=== PATIENT | female | born 1970 | race African-American/Black ===

== ENCOUNTER 2016-10-11 10:45 | Emergency (ER) | payer MEDICAID, OTHER ==
[~2016-10-11] VITALS: Ht 172.7 cm; Wt 114.0 kg
[~2016-10-11 10:45] MED LIST: BENADRYL; TYLENOL #3; ZOLOFT
[2016-10-11] MEDS ORDERED: HYDR12.529 PO (10:58)
[2016-10-11] MEDS ORDERED: AMLO2.5T45 PO (10:58)
[2016-10-11] MEDS ORDERED: OXYCODONE HCL/ACETAMINOPHEN 5/325MG TABLET PO ONE (12:00)
[2016-10-11 13:03] VITALS: BP 144/90
== END 2016-10-11 14:20 | disposition home or self-care (01) ==
LOC: ER 10:45
DX: M25.512 Pain in left shoulder (principal); M25.812 Other specified joint disorders, left shoulder; I10 Essential (primary) hypertension; J45.909 Unspecified asthma, uncomplicated; Z90.49 Acquired absence of other specified parts of digestive tract; Z88.6 Allergy status to analgesic agent; W01.0XXA Fall on same level from slipping, tripping and stumbling without subsequent striking against object, initial encounter; Y93.89 Activity, other specified; Y92.012 Bathroom of single-family (private) house as the place of occurrence of the external cause
CPT/HCPCS: 73030; 99284

== ENCOUNTER 2016-12-28 18:15 | Emergency (ER) | payer OTHER ==
[~2016-12-28] VITALS: Ht 172.7 cm; Wt 109.0 kg
[~2016-12-28 18:15] MED LIST changes: +AMLO2.5T45 PO; +HYDR12.529 PO
[2016-12-28] MEDS ORDERED: PREDNISONE 20MG TABLET PO STA (18:51)
[2016-12-28] MEDS ORDERED: IPRATROPIUM BROMIDE (0.02%) 0.5MG/2.5ML NEB HHN STA ×2 (18:51→23:36)
[2016-12-28] MEDS ORDERED: ALBUTEROL (0.083%) 2.5MG/3ML NEB HHN STA ×2 (18:51→23:36)
[2016-12-28] MEDS ORDERED: SODIUM CHLORIDE 0.9% 1,000 ML IV ONE (20:49)
[2016-12-28 22:15] LABS: *AMPHETAMINES SCREEN URINE NEGATIVE (NEGATIVE); *BARBITURATES SCREEN URINE NEGATIVE (NEGATIVE); *COCAINE SCREEN URINE NEGATIVE (NEGATIVE); CANNABINOID URINE SCREEN NEGATIVE (NEGATIVE); METHADONE URINE SCREEN NEGATIVE (NEGATIVE); PHENCYCLIDINE URINE SCREEN NEGATIVE (NEGATIVE)
[2016-12-28 22:16] LABS: *BENZODIAZEPINES SCREEN URINE PRESUMTIVE POSITIVE (NEGATIVE); OPIATES URINE SCREEN PRESUMTIVE POSITIVE (NEGATIVE)
[2016-12-28 22:29] LABS: HEMATOCRIT. 33.5 % (36.0-48.0); HEMOGLOBIN. 10.9 g/dL (12.0-16.0); MEAN CORPUSCULAR HEMOGLOBIN 25.8 pg (28.0-32.0); MEAN PLATELET VOLUME 10.2 fl (7.4-10.4); PLATELET 205 x1000/uL (130-400); RED BLOOD CELL COUNT 4.25 mill/uL (4.2-5.4); RED CELL DISTRIBUTION WIDTH 15.9 % (11.6-14.6)
[2016-12-28 22:30] LABS: INR 1.1
[2016-12-28 22:38] LABS: CARBON DIOXIDE 28 mEq/L (21-32); CHLORIDE 104 mEq/L (98-107)
[2016-12-28 22:45] LABS: PLATELET ESTIMATE NORMAL
[2016-12-28] MEDS ORDERED: ACETAMINOPHEN 325MG TABLET PO ONE (23:15)
[2016-12-29 02:01] VITALS: BP 136/88
== END 2016-12-29 03:09 | disposition home or self-care (01) ==
LOC: ER 19:10
DX: J45.901 Unspecified asthma with (acute) exacerbation (principal); F11.10 Opioid abuse, uncomplicated; F13.10 Sedative, hypnotic or anxiolytic abuse, uncomplicated; I10 Essential (primary) hypertension; G89.29 Other chronic pain; F32.9 Major depressive disorder, single episode, unspecified; F17.210 Nicotine dependence, cigarettes, uncomplicated; Z88.6 Allergy status to analgesic agent; Z87.11 Personal history of peptic ulcer disease
CPT/HCPCS: 36415; 71010; 80053; 80305; 83880; 85025; 85610; 94640; 96360; 96361; 99285; J7512; J7611; J7030

== ENCOUNTER 2016-12-29 02:46 | Emergency (ER) | payer OTHER ==
[~2016-12-29] VITALS: Ht 172.7 cm; Wt 109.0 kg
[2016-12-29] MEDS ORDERED: NAPROXEN 500MG TABLET PO ONE (07:45)
[2016-12-29 09:43] VITALS: BP 121/64
== END 2016-12-29 10:02 | disposition home or self-care (01) ==
LOC: ER 02:46
DX: M54.9 Dorsalgia, unspecified (principal); G89.29 Other chronic pain; M25.511 Pain in right shoulder; F17.210 Nicotine dependence, cigarettes, uncomplicated; M25.579 Pain in unspecified ankle and joints of unspecified foot; J45.909 Unspecified asthma, uncomplicated; F32.9 Major depressive disorder, single episode, unspecified; Z87.11 Personal history of peptic ulcer disease; Z88.6 Allergy status to analgesic agent
CPT/HCPCS: 99283

== ENCOUNTER 2017-01-18 18:20 | Emergency (ER) | payer OTHER ==
[~2017-01-18] VITALS: Ht 172.7 cm; Wt 109.0 kg
[2017-01-18] MEDS ORDERED: ACETAMINOPHEN WITH CODEINE 300/30MG TABLET PO STA (21:10)
[2017-01-18] MEDS ORDERED: IPRATROPIUM/ALBUTEROL 0.5-3(2.5)MG/3ML NEB HHN ONE (21:15)
[2017-01-18 21:30] LABS: BASOPHILS % 0.9 % (0.0-2.0); EOSINOPHILS % 5.2 % (0.0-5.0); HEMATOCRIT. 37.5 % (36.0-48.0); HEMOGLOBIN. 12.4 g/dL (12.0-16.0); LYMPHOCYTES % 24.9 % (20.0-50.0); MEAN CORPUSCULAR HEMOGLOBIN 26.2 pg (28.0-32.0); MEAN CORPUSCULAR VOLUME 79.4 fL (81.0-99.0); MEAN PLATELET VOLUME 9.5 fl (7.4-10.4); MONOCYTES % 10.6 % (2.0-8.0); NEUTROPHILS % 58.4 % (40.0-76.0); PLATELET 240 x1000/uL (130-400); RED BLOOD CELL COUNT 4.72 mill/uL (4.2-5.4)
[2017-01-18 21:34] LABS: CHLORIDE 107 mEq/L (98-107)
[2017-01-18 21:35] LABS: INR 1.1; PROTHROMBIN TIME 11.1 sec (9.4-11.6)
[2017-01-18 21:44] LABS: CARBON DIOXIDE 30 mEq/L (21-32)
[2017-01-18] MEDS ORDERED: ALBUTEROL (0.083%) 2.5MG/3ML NEB HHN ONE (23:15)
[2017-01-19 00:04] VITALS: BP 147/90
== END 2017-01-19 00:35 | disposition home or self-care (01) ==
LOC: ER 18:20
DX: R60.0 Localized edema (principal); J45.909 Unspecified asthma, uncomplicated; I10 Essential (primary) hypertension
CPT/HCPCS: 36415; 71010; 80053; 81025; 82962; 85025; 85610; 93970; 99285; J7611; J7620